=== PATIENT | male | born 1965 | race Caucasian/White ===

== ENCOUNTER 2017-05-27 08:24 | Emergency (ER) | payer BC ==
[~2017-05-27] VITALS: Ht 172.7 cm; Wt 78.0 kg
[2017-05-27] MEDS ORDERED: BENA40TA66 PO (08:31)
[2017-05-27] MEDS ORDERED: KETOROLAC 60MG/2ML VIAL IM ONE (09:45)
[2017-05-27 10:22] LABS: BASOPHILS % 0.8 % (0.0-2.0); EOSINOPHILS % 0.2 % (0.0-5.0); HEMATOCRIT. 45.4 % (42.0-52.0); HEMOGLOBIN. 15.4 g/dL (14.0-18.0); LYMPHOCYTES % 18.1 % (20.0-50.0); MEAN CORPUSCULAR HEMOGLOBIN 28.5 pg (28.0-32.0); MEAN CORPUSCULAR VOLUME 84.3 fL (80.0-94.0); MEAN PLATELET VOLUME 8.6 fl (7.4-10.4); MONOCYTES % 11.1 % (2.0-8.0); NEUTROPHILS % 69.8 % (40.0-76.0); PLATELET 245 x1000/uL (130-400); RED BLOOD CELL COUNT 5.39 mill/uL (4.7-6.1); RED CELL DISTRIBUTION WIDTH 13.7 % (11.6-14.6)
[2017-05-27 10:35] LABS: CARBON DIOXIDE 31 mEq/L (21-32); CHLORIDE 95 mEq/L (98-107)
[2017-05-27 13:10] VITALS: BP 134/87
== END 2017-05-27 13:53 | disposition home or self-care (01) ==
LOC: ER 08:40
DX: R51 Headache (principal); R42 Dizziness and giddiness; I10 Essential (primary) hypertension; Z98.890 Other specified postprocedural states
CPT/HCPCS: 36415; 70450; 80053; 85025; 96372; 99285; J1885